=== PATIENT | male | born 1990 | race African-American/Black ===

== ENCOUNTER 2018-07-05 21:48 | Emergency (ER) | payer BC, OTHER ==
[2018-07-05] MEDS ORDERED: Ibuprofen 800 MG TAB ONE (22:06)
[2018-07-05] MEDS ORDERED: Acetaminophen 500 MG TAB ONE (22:06)
== END 2018-07-05 22:54 | disposition home or self-care (01) ==
LOC: ERS 21:48
DX: J10.1 Influenza due to other identified influenza virus with other respiratory manifestations (principal)
CPT/HCPCS: 87804; 99283